=== PATIENT | female | born 1975 | race Caucasian/White ===

== ENCOUNTER 2023-09-01 13:11 | Emergency (ER) | payer SELFPAY ==
--- NOTE | ~2023-09-01 | XR_ITS ---
EXAMINATION: XR chest 2V 09/01/2023 13:50 INDICATION: Shortness of breath and chest pain PROCEDURE: 2 view chest COMPARISON: FINDINGS: The lungs are clear. The cardiomediastinal silhouette is within normal limits. There are no pleural effusions. There is no pneumothorax suspected. There is a healed left eighth rib fractur e. There is a prominent left nipple shadow. IMPRESSION: 1: NO ACUTE CARDIOPULMONARY DISEASE. Reviewed, dictated and finalized at location B.
[2023-09-01 13:13] VITALS: BP 108/75; PULSE 106; RESP 16; TEMP 36.6; O2SAT 100
--- NOTE | 2023-09-01 13:17 | ECG_ITS ---
SEE SCANNED COPY FOR CONFIRMED REPORT MTDD
[2023-09-01 13:43] LABS: Basophils Absolute Auto 0.1 K/mm3 (0.0-0.1); Basophils Percent Auto 0.3 % (0.2-1.2); Eosinophils Absolute Auto 0.1 K/mm3 (0-0.3); Eosinophils Percent Auto 0.6 % (0-4.4); Hematocrit 35.4 % (37.0-47.0); Hemoglobin 12.1 g/dL (12.0-15.0); Immature Granulocyte Absolute 0.17 K/mm3 (0.00-0.031); Immature Granulocyte Percent A 0.9 % (0-0.5); Lymphocytes Absolute Auto 2.59 K/mm3 (0.9-3.2); Lymphocytes Percent Auto 14.3 % (18.3-44.2); Mean Corpuscular HGB Conc 34.2 g/dl (32-36); Mean Corpuscular Hemoglobin 33.7 pg (26-34); Mean Corpuscular Volume 98.6 fl (80-100); Monocytes Absolute Auto 1.4 K/mm3 (0.1-0.6); Monocytes Percent Auto 7.9 % (2.6-8.5); Neutrophils Absolute Auto 13.8 K/mm3 (1.3-6.7); Platelet Count Result 242 k/mm3 (150-375); Red Blood Count 3.59 M/mm3 (4.2-5.4); Red Cell Distribution Width 13.2 % (11.5-14.5); White Blood Count 18.2 K/mm3 (4.5-10.0)
[2023-09-01 13:46] LABS: Alanine Aminotransferase 15 U/L (6-35); Albumin Level 3.8 g/dL (3.5-5.1); Alkaline Phosphatase 124 U/L (38-126); Anion Gap 7 mmol/L (4-12); Aspartate Amino Transferase 18 U/L (14-36); Bilirubin,Total 0.8 mg/dL (0.2-1.3); Blood Urea Nitrogen 14 mg/dL (7-17); Calcium 9.3 mg/dL (8.4-10.2); Carbon Dioxide 26 mmol/L (22-30); Chloride 98 mmol/L (98-107); Estimated CRCL calculation 41 ml/min; Estimated Glomerular Filt Rate > 60; Glucose 127 mg/dL (65-110); Lipase 53 U/L (23-300); Sodium 131 mmol/L (137-145)
[2023-09-01 13:47] LABS: INR 1.1
[2023-09-01 13:48] LABS: Partial Thromboplastin Time 32.4 Seconds (22.3-36.8)
[2023-09-01 13:58] LABS: Troponin I < 0.012 ng/mL (0.000-0.034)
[2023-09-01 14:09] LABS: Anisocytosis 1+; Burr Cells 1+; Platelet Estimate Adequate (Adequate); Schistocytes None Seen
[2023-09-01 15:08] VITALS: PULSE 82
[2023-09-01 15:10] VITALS: BP 117/75; PULSE 82; RESP 13; O2SAT 100
[2023-09-01] MEDS: ONDANSETRON INJ 4 MG/2 ML VIAL IV PUSH (15:41)
[2023-09-01] MEDS: SODIUM CHLORIDE 0.9% IV 1,000 ML 999 ML IV CONT (15:41)
[2023-09-01] MEDS: POTASSIUM CHLORIDE 20 MEQ ER TABLET 40 MEQ PO (15:41)
[2023-09-01 16:08] LABS: Influenza A QL RT-PCR Negative (Negative); Influenza B QL RT-PCR Negative (Negative); RSV RNA, RT-PCR Negative (Negative); SARS-CoV-2 RNA PCR Negative (Negative)
[2023-09-01 16:43] VITALS: BP 131/83; PULSE 82; RESP 13; TEMP 36.9; O2SAT 100
[2023-09-01 17:15] LABS: Troponin I < 0.012 ng/mL (0.000-0.034)
--- NOTE | 2023-09-01 17:34 | ED.SOB ---
HPI - SOB/Dyspnea General Chief Complaint: Shortness of Breath/Dyspnea Stated Complaint: I think im having heart problems again Time Seen by Provider: 09/01/23 15:12 History of Present Illness HPI Narrative: Patient is a 47-year-old female who presents ER with shortness of breath. Has been feeling it mainly in the mornings and evenings over last week. no sinus congestion or sore throat. She has been feeling fatigued and having some chills. No documented fevers but thinks she has had them. 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 She has taken multiple COVID tests that were negative. patient also reports she has been having vomiting without abdominal pain. One episode of emesis today. Related Data Allergies Allergy/AdvReac Type Severity Reaction Status Date / Time No Known Allergies Allergy Mild Unverified 09/01/23 13:11 Review of Systems Review of Systems: All systems reviewed & are unremarkable except as noted in HPI and below Constitutional: Constitutional: Reports chills, Reports fatigue, Reports fever(s) and Reports weakness ENT: Reports system reviewed and no additional complaints, except as documented Cardiovascular: Cardiovascular: Reports no additional cardiovascular complaints Respiratory: Respiratory: Denies chest congestion, Denies cough, Reports dyspnea and Denies wheezing Gastrointestinal: Gastrointestinal: Reports no additional gastrointestinal complaints Musculoskeletal: Musculoskeletal: Reports no additional musculoskeletal complaints Integumentary/Breasts: Skin/Breast: Reports system reviewed and no additional complaints, except as docu PMFSH Past Medical History Medical History (Updated 09/01/23 @ 17:37 by Chalo Manrique MD) Viral cardiomyopathy Exam Narrative: GENERAL: Well-appearing, well-nourished, and in no acute distress. HEAD: Normocephalic, atraumatic. EYES: PERRL and EOMI. ENT: Mucous membranes moist. CHEST: Clear to auscultation. No respiratory distress. HEART: Regular rate and rhythm. Normal peripheral pulses. ABDOMEN: Soft, nontender, nondistended EXTREMITIES: Normal range of motion. No edema. SKIN: Warm, dry, no rash. NEURO: Alert and oriented x3. PSYCH: Normal mood and affect. Course Course Emergency Course: Clinically patient looks well. Mild hyponatremia and potassium was replaced. She received IV fluid. White blood cell count elevated and no obvious pneumonia but given her shortness of breath with elevated white count and fever and negative viral panel we will start her on antibiotics. Vital Signs Vital signs: Vital Signs Temperature 97.8 F 09/01/23 13:13 Pulse Rate 106 H 09/01/23 13:13 Respiratory Rate 16 09/01/23 13:13 Blood Pressure 108/75 09/01/23 13:13 Pulse Oximetry 100 09/01/23 13:13 Oxygen Delivery Room Air 09/01/23 13:13 Temperature 98.5 F 09/01/23 16:43 Pulse Rate 82 09/01/23 16:43 Respiratory Rate 13 09/01/23 16:43 Blood Pressure 131/83 09/01/23 16:43 Pulse Oximetry 100 09/01/23 16:43 Oxygen Delivery Room Air 09/01/23 13:13 MDM - SOB/Dyspnea Lab Data 09/01/23 13:30 09/01/23 13:30 Labs: Lab Results 09/01/23 09/01/23 09/01/23 Range/Units 13:30 15:27 16:43 WBC 18.2 H (4.5-10.0) K/mm3 RBC 3.59 L (4.2-5.4) M/mm3 Hgb 12.1 (12.0-15.0) g/dL Hct 35.4 L (37.0-47.0) % MCV 98.6 (80-100) fl MCH 33.7 (26-34) pg MCHC 34.2 (32-36) g/dl RDW 13.2 (11.5-14.5) % Plt Count 242 (150-375) k/mm3 MPV 10.0 (7.4-10.4) fl Immature Gran % (Auto) 0.9 H (0-0.5) % Neut % (Auto) 76.0 H (45.5-73.1) % Lymph % (Auto) 14.3 L (18.3-44.2) % [place] % (Auto) 7.9 (2.6-8.5) % Eos % (Auto) 0.6 (0-4.4) % Baso % (Auto) 0.3 (0.2-1.2) % Lymph # (Auto) 2.59 (0.9-3.2) K/mm3 [place] # (Auto) 1.4 H (0.1-0.6) K/mm3 Eos # (Auto) 0.1 (0-0.3) K/mm3 Baso # (Auto) 0.1 (0.0-0.1
[2023-09-01 17:58] VITALS: BP 115/77; PULSE 88; RESP 14; TEMP 36.9; O2SAT 100
== END 2023-09-01 18:00 | disposition home or self-care (01) ==
PROVIDERS: Nurse Practitioner Family; Emergency Provider Emergency Medicine
DX: J18.9 Pneumonia, unspecified organism (principal); Z20.822 Contact with and (suspected) exposure to COVID-19; R94.31 Abnormal electrocardiogram [ECG] [EKG]
CPT/HCPCS: 36415; 71046; 80053; 83690; 84484; 85025; 85610; 85730; 87637; 93005; 96361; 96374; 99284; A9270; J2405; J7030